=== PATIENT | female | born 1970 | race Caucasian/White ===

== ENCOUNTER → 2021-02-06 | Outpatient (CLI) | payer BC ==
[2021-02-06 06:33] LABS: HEMOGLOBIN 13.5 gm/dl (12.3-15.3); RED BLOOD COUNT 4.17 M/UL (4.00-5.10); WHITE BLOOD COUNT 6.9 K/UL (4.5-11.0)
[2021-02-06 07:03] LABS: BUN/CREATININE RATIO 20 (0-10)
[2021-02-07 07:11] LABS: FSH 6.7 mIU/mL (.); LUTEINIZING HORMONE(LH) 6.3 mIU/mL (.); PROGESTERONE 0.6 ng/mL (.); VITAMIN D, 25-HYDROXY 39.6 ng/mL (30.0-100.0)
[2021-02-10 23:06] LABS: TESTOSTERONE, SERUM 25 ng/dL (4-50)
== END ==
LOC: LAB 06:14
PROVIDERS: Nurse Practitioner
DX: Z00.01 Encounter for general adult medical examination with abnormal findings (principal); Z13.220 Encounter for screening for lipoid disorders; N92.0 Excessive and frequent menstruation with regular cycle; D50.9 Iron deficiency anemia, unspecified; D51.9 Vitamin B12 deficiency anemia, unspecified; E55.9 Vitamin D deficiency, unspecified
CPT/HCPCS: 36415; 80053; 80061; 82607; 82670; 82728; 82746; 83001; 83002; 84144; 84402; 84403; 84439; 84443; 85027